=== PATIENT | male | born 1965 | race Caucasian/White ===

== ENCOUNTER → 2019-02-16 | Outpatient (CLI) | payer OTHER ==
[~2019-02-16] VITALS: Ht 182.9 cm; Wt 170.1 kg
[~2019-02-16] MED LIST: ESCITALOPRAM OX20 MG PO; LANSOPRAZOLE30 MG PO; LUNESTA1 MG PO; MEN 50 PLUS MU1 EACH PO; NEURONTIN 300300 M1 PO; VITAMIN D310000 UNIT PO
--- NOTE | ~2019-02-16 | P ---
[facility] [place] [address] PROCEDURE REPORT Name: RUTH ANN GRANT Room #: REG [facility]#: [id number] Admission: 02/16/19 ������������������ Attend Phys: Matteo Lyn MD Discharge: ������������������ Date of : 63 Report #: [id number] THIS REPORT FOR: //name// CC: Matteo Hinson MD DATE OF SERVICE: 02/16/2019 BRIEF HISTORY: The patient is a 53-year-old male who has had a recent change in bowel habits with new onset constipation, which is a new problem for him. If anything, the past, he tended to have looser stools. PREOPERATIVE DIAGNOSIS: Change in bowel habits. POSTOPERATIVE DIAGNOSES: 1. Multiple colon polyps. 2. Rectal polyp. ESTIMATED BLOOD LOSS: 3 mL. PROCEDURE: Colonoscopy to cecum and terminal ileum with sterile polypectomy and biopsy. FINDINGS: Prior to propofol sedation, procedure of colonoscopy discussed with the patient as well as potential risks and its complications. He indicates he understands and desires to proceed. DESCRIPTION OF PROCEDURE: With the patient in left lateral decubitus position, digital examination was completed, which revealed no abnormalities. Subsequently, the Olympus video colonoscope was introduced in the rectum and advanced under direct vision to the cecum. Done with minimal difficulty. The cecum was identified by the ileocecal valve and the appendiceal orifice. I was able to visualize the distal segment of terminal ileum, which was inspected and noted to be unremarkable. At that point, the scope was slowly withdrawn and careful circumferential views were obtained. As the scope was drawn through the colon, mucosa was inspected. The prep was good. The mucosa was within normal limits, normal vascular pattern, normal light reflex. As we withdrew the scope, he was found to have a 5 mm sessile polyp in the mid transverse colon removed by cold snare polypectomy. In the distal transverse colon, a diminutive polyp was seen and removed with biopsy forceps. At 70 cm, a diminutive polyp was seen and removed with biopsy forceps. At 50 cm, 3 polyps were seen. Two were 5 mm sessile polyps removed by cold snare polypectomy and one was a diminutive polyp removed with biopsy forceps. Scope was further the withdrawal no additional abnormalities were seen. In the rectum, a 4 mm polyp was seen and removed with a biopsy forceps. Upon retroflexion, no additional lesions were seen. In [address] [address] PROCEDURE REPORT Name: JUANITARUTH ANN Vianey Room #: REG [facility] Crum#: [id number] Admission: 02/16/19 ������������������ Attend Phys: Matteo Lny MD Discharge: ������������������ Date of : 63 Report #: [id number] addition to the multiple polyps found, the colonic lumen was generous in size without evidence of obstructing lesions. No additional abnormalities were seen. Scope was withdrawn. The patient tolerated the procedure well. CONDITION OF THE PATIENT UPON DISCHARGE: Following procedure, the patient drowsy, aroused, conversant and will be discharged home when fully ambulatory. INSTRUCTIONS TO THE PATIENT AND FAMILY AT THE TIME OF DISCHARGE: We will follow up on the path of the polyps. If 3 or more adenomas, he should return in 3 years, otherwise he is to return in 5 years for followup colonoscopy. Suggest high fiber diet. Also, use of MiraLax as needed for constipation may be helpful for bouts of constipation. He will return to care of Dr. Jody Hinson return to see me as needed. This is the patient's first colonoscopy. Withdrawal time from the cecum was 21 minutes and 4 seconds. ��������������������������������������������� ���������������������������������������� By: ��������������������������������������������� [id number] Matteo Lyn MD /nt
--- NOTE | ~2019-02-16 | P ---
[facility] [place] [address] PROCEDURE REPORT Name: RUTH ANN GRANT Room #: REG [facility]#: [id number] Admission: 02/16/19 ������������������ Attend Phys: Matteo Lyn MD Discharge: ������������������ Date of : 63 Report #: [id number] THIS REPORT FOR: //name// CC: Matteo Hinson MD OUTPATIENT UPPER ENDOSCOPY BRIEF HISTORY: The patient is a 53-year-old male who was recently seen in the office with complaints of nausea. He has a history of morbid obesity and previous gastric sleeve surgery done number of years ago. He has not had much vomiting. PREOPERATIVE DIAGNOSIS: Persistent nausea. POSTOPERATIVE DIAGNOSES: 1. Modest diffuse gastritis. 2. Surgical changes consistent with gastric sleeve surgery. MEDICATIONS: Deep sedation with propofol per anesthesia. SPECIMEN: Biopsies of gastritis. ESTIMATED BLOOD LOSS: 3 mL. PROCEDURE: EGD with biopsy. FINDINGS: Prior to propofol sedation, procedure of upper endoscopy was discussed with the patient as well as potential risks and its complications. He indicates he understands and desires to proceed. DESCRIPTION OF PROCEDURE: With the patient in left lateral decubitus position, the Olympus video endoscope was inserted in the cervical esophagus under direct vision without difficulty. Examination of this organ through its entire length revealed normal esophageal mucosa down the squamocolumnar junction. The squamocolumnar junction was inspected and noted to be unremarkable. No ulcers or erosions were seen. Significant hiatus hernia was not seen. No strictures or masses were seen. The scope was advanced in the stomach, which was examined on end view as well as retroflexed views. The patient has surgical findings consistent with a gastric sleeve. The anastomotic line is intact. There are no ulcers, strictures or mass lesions. Examination of the mucosa revealed evidence of modest diffuse gastritis throughout the stomach, but mostly in the antrum. No ulcers, erosions or bleeding lesions were seen. There was noted to be a small amount of bile in the stomach. A large amount of bile was not seen. Multiple biopsies obtained of the antrum and body to evaluate for H. pylori. The pylorus was normal. Duodenal bulb was normal. Post-duodenal bulbar sweep [facility] [address] [place] [address] PROCEDURE REPORT Name: RUTH ANN GRANT Room #: REG [facility].#: [id number] Admission: 02/16/19 ������������������ Attend Phys: Matteo Lyn MD Discharge: ������������������ Date of : 63 Report #: [id number] down to the third portion was unremarkable. At that point, the scope was slowly withdrawn and careful circumferential views confirmed the above findings. The patient tolerated the procedure well. CONDITION OF THE PATIENT UPON DISCHARGE: Following the procedure, the patient was drowsy and prepared for colonoscopy. INSTRUCTIONS TO THE PATIENT AND FAMILY AT THE TIME OF DISCHARGE: The patient with complaints of nausea, I do not see any significant lesions. We will follow up on biopsies. He has found some success with , he may continue. Zofran may be used as well. If symptoms persist, treatment of bile with sucralfate may be indicated. Proceed with colonoscopy at this time. If the patient does not have improvement of symptoms, he is to return to see me in followup in the office. ��������������������������������������������� ���������������������������������������� By: ��������������������������������������������� 0827 [id number] Matteo Lyn MD /nt
--- NOTE | 2019-02-20 19:06 | PATH ---
[facility] [place] [address] PATHOLOGY RPT PROCEDURE Name: RUTH ANN MIRANDA Room #: REG [facility] Samantha.#: [id number] ������������������ Admission: 02/16/19 ������������������ Date of : 63 Discharge: Report #: [id number] Path Case #: [id number] [facility] Accession Number: [id number] . 01 Material submitted: . PART A: stomach - BX OF GASTRIC R/O H. PYLORI PART B: colon - BX OF POLYP AT 70CM PART C: colon - BX OF POLYP AT DISTAL TRANSVERSE COLON. Modifiers: distal, transverse PART D: colon - POLYP AT MID-TRANSVERSE COLON. Modifiers: mid, transverse PART E: colon - BX OF F POLYP AT 50CM AND X2 S POLYPS AT 50CM PART F: rectum - BX OF POLYP AT RECTUM . 01 Clinical history: . Pre-OP DX: Nausea, change of bowel habits Post-OP DX: Colon polyp, gastritis . 02 Diagnosis: A. Gastric mucosa, gastric rule out H. pylori, endoscopic biopsy: - Mild reactive gastropathy. - Negative for intestinal metaplasia or atrophy. - Negative for Helicobacter pylori (properly-controlled immunohistochemical stain performed). . B. Polyp, at 70 cm, endoscopic biopsy: - Tubular adenoma. - Negative for high grade dysplasia. . C. Polyp, at distal transverse colon, endoscopic biopsy: - Tubular adenoma. - Negative for high grade dysplasia. . D. Polyp, at mid transverse colon, endoscopic biopsy: - Tubular adenoma. - Negative for high grade dysplasia. . E. Polyp x3, at 50 cm, endoscopic biopsy: - Multiple fragments showing tubular adenoma without high grade dysplasia. - Few fragments showing unremarkable mucosa and lymphoid aggregates with no evidence of dysplasia. . F. Polyp, at rectum, endoscopic biopsy: - Superficial fragments compatible with a tubular adenoma. - Negative for high grade dysplasia. . (IUV:mml; 02/20/2019) QLM/02/20/[address] [address] PATHOLOGY RPT PROCEDURE Name: RUTH ANN MIRANDA Room #: REG [facility].#: [id number] ������������������ Admission: 02/16/19 ������������������ Date of : 63 Discharge: Report #: [id number] Path Case #: [id number] . 02 Electronically signed: . Marcelina Mckeon MD, Pathologist NPI- [id number] . 01 Gross description: . A. Received in formalin labeled "Ruben, Ruth Ann, BX of gastric, rule out H. pylori," are 5 segments of ayon soft tissue measuring 1.5 x 0.9 x 0.2 cm in aggregate dimensions and ranging from 0.3 to 0.6 cm in maximum dimension. The specimen is submitted entirely in cassette A1. . B. Received in formalin labeled "Ruth Ann Miranda, BX of polyp at 70 cm," are 2 segments of ayon soft tissue measuring 0.8 x 0.3 x 0.2 cm in aggregate dimensions and ranging from 0.2 to 0.6 cm in maximum dimension. The specimen is submitted entirely in cassette B1. . C. Received in formalin labeled "Ruth Ann Miranda, BX of polyp at distal transverse colon," is a single segment of ayon soft tissue measuring 0.5 cm in maximum dimension. The specimen is entirely submitted in cassette C1. . D. Received in formalin labeled "Ruth Ann Miranda, polyp at mid transverse," are 2 segments of ayon soft tissue measuring 1.0 x 0.3 x 0.3 cm in aggregate dimensions and ranging from 0.4 to 0.6 cm in maximum dimension. The specimen is submitted entirely in cassette D1. . E. Received in formalin labeled "Ruth Ann Miranda, BX of polyp at 50 cm," and additionally labeled on the requisition as "polyp at 50 cm," are multiple segments of ayon soft tissue measuring 2.0 x 0.9 x 0.3 cm in aggregate dimensions. The specimen is filtered and entirely submitted in cassette E1. . F. Received in formalin labeled "Ruth Ann Miranda, BX of polyp at rectum," is a single segment of ayon soft tissue measuring 0.5 cm in maximum dimension. The specimen is entirely submitted in cassette F1. (TSD; 02/17/2019) TOB/TOB . 02 Pathologist provided ICD-10: K31.9, D12.6, D12.3, D12.8 . 02 CPT . 572491, 936959, 951395, 422723, 323368, 881987 Specimen Comment: A courtesy copy of this report has been sent to Specimen Comment: [phone], . Specimen Comment: Report sent to / DR THOMPSON Performed at: [address] [place] [address] [address], [place] [id number] [facility] [address] [place] [address] PATHOLOGY RPT PROCEDURE Name: RUTH ANN MIRANDA Room #: BAMBI Crum#: [id number] ������������������ Admission: 02/16/19 ������������������ Date of : 63 Discharge: Report #: [id number] Path Case #: [id number] MD Magno Lopez MD Phone: [phone] Performed at: [facility] [address] [facility] [place] [id number] MD Marcelina Mckeon MD Phone: [phone]
== END | disposition home or self-care (01) ==
LOC: GI 07:18
DX: D12.3 Benign neoplasm of transverse colon (principal); D12.5 Benign neoplasm of sigmoid colon; D12.4 Benign neoplasm of descending colon; D12.8 Benign neoplasm of rectum; K31.9 Disease of stomach and duodenum, unspecified; K21.9 Gastro-esophageal reflux disease without esophagitis; K29.70 Gastritis, unspecified, without bleeding; F32.9 Major depressive disorder, single episode, unspecified; F41.9 Anxiety disorder, unspecified; G47.33 Obstructive sleep apnea (adult) (pediatric); Z98.890 Other specified postprocedural states; Z98.84 Bariatric surgery status; Z79.899 Other long term (current) drug therapy; Z90.49 Acquired absence of other specified parts of digestive tract; Z98.52 Vasectomy status; Z88.0 Allergy status to penicillin; Z88.8 Allergy status to other drugs, medicaments and biological substances
CPT/HCPCS: 62110; 62900